=== PATIENT | female | born 1985 | race Caucasian/White ===

== ENCOUNTER 2018-12-03 04:51 | Emergency (ER) | payer OTHER ==
[~2018-12-03] VITALS: Ht 157.5 cm; Wt 63.0 kg
[~2018-12-03 04:51] MED LIST: BIRTH CONTROL; CEPHALEXIN 500500 M1 PO
[2018-12-03] MEDS ORDERED: TYLENOL PM EX-1 EACH PO (05:07)
[2018-12-03 05:22] LABS: URINE CLARITY CLEAR; URINE COLOR ORANGE; URINE SPECIFIC GRAVITY 1.025 (1.005-1.030)
[2018-12-03 05:26] LABS: URINE GLUCOSE-RANDOM ND (Negative); URINE PROTEIN ND (Negative); URINE REDUCING SUBSTANCE NEGATIVE (Negative)
[2018-12-03 05:27] LABS: ICTOTEST (BILI CONFIRMATORY) Negative (Negative); URINE BILIRUBIN ND (Negative); URINE BLOOD ND (Negative); URINE KETONES ND (Negative); URINE NITRITE-REFLEX ND (Negative)
[2018-12-03 05:28] LABS: URINE LEUKOCYTES-REFLEX ND (Negative); URINE UROBILINOGEN ND E.U./dl (0.2-1.0)
[2018-12-03 05:29] LABS: ACETEST (KETONE CONFIRMATORY) Moderate (Negative)
[2018-12-03 05:32] LABS: BACTERIA-REFLEX 1-9 Few /HPF (None Seen); CASTS None Seen /LPF (None Seen); CRYSTALS None Seen /LPF (None Seen); MUCUS 4-6 Moderate strn/LPF (None Seen); SQUAMOUS >10 Many /LPF (0-3); URINE RBC 3-10 Few /HPF (0-2); URINE WBC-REFLEX 6-15 Few /HPF (0-5)
[2018-12-03 06:08] LABS: ABSOLUTE MONOCYTES 0.5 thou/uL (0.0-1.2); ABSOLUTE NEUTROPHILS 7.7 thou/uL (1.6-8.1); BASOPHILS 0.5 %; EOSINOPHILS 0.4 %; HEMATOCRIT 40.4 % (37.0-47.0); HEMOGLOBIN 13.9 gm/dL (12.0-15.0); LYMPHOCYTES 10.6 %; MCH 34.7 pg (26.0-34.0); MCHC 34.5 g/dL (28.0-37.0); MCV 100.8 fL (80.0-100.0); MONOCYTES 5.4 %; MPV 8.1 fl. (7.2-11.1); NUCLEATED RBCS 0 /100WBC; PLATELET COUNT* 209 thou/uL (150-400); POLYS 83.1 %; RDW-CV 12.2 % (10.5-14.5); WBC 9.3 thou/uL (4.0-11.0)
[2018-12-03 06:16] LABS: CREATININE 0.8 mg/dL (0.6-1.3); POTASSIUM 4.3 mmol/L (3.5-5.1)
[2018-12-03 06:20] LABS: ALBUMIN 3.8 g/dL (3.4-5.0); TOTAL BILIRUBIN 0.6 mg/dL (<0.1-1.0)
[2018-12-03] MEDS ORDERED: HYDROCODONE-AP1 EAC6 PO (08:10)
[2018-12-03] MEDS ORDERED: FLAGYL500 M1 PO (08:10)
[2018-12-03] MEDS ORDERED: CIPRO500 MG PO (08:10)
[2018-12-03 08:30] VITALS: BP 108/72
== END 2018-12-03 08:32 | disposition home or self-care (01) ==
LOC: M.ERS 04:51
PROVIDERS: Emergency Medicine
DX: R10.30 Lower abdominal pain, unspecified (principal); R42 Dizziness and giddiness; J45.909 Unspecified asthma, uncomplicated; G43.909 Migraine, unspecified, not intractable, without status migrainosus; Z88.1 Allergy status to other antibiotic agents; Z88.8 Allergy status to other drugs, medicaments and biological substances

== ENCOUNTER 2018-12-06 09:48 | Emergency (ER) | payer OTHER ==
[~2018-12-06] VITALS: Ht 157.5 cm; Wt 63.0 kg
[~2018-12-06 09:48] MED LIST changes: +CIPRO500 MG PO; +FLAGYL500 M1 PO; +HYDROCODONE-AP1 EAC6 PO; +TYLENOL PM EX-1 EACH PO
[2018-12-06] MEDS ORDERED: ATIVAN0.5 MG PO (10:02)
[2018-12-06 11:11] LABS: URINE BILIRUBIN NEGATIVE (Negative); URINE BLOOD 3+ (Negative); URINE CLARITY CLEAR; URINE COLOR YELLOW; URINE GLUCOSE-RANDOM NEGATIVE (Negative); URINE KETONES NEGATIVE (Negative); URINE LEUKOCYTES-REFLEX NEGATIVE (Negative); URINE NITRITE-REFLEX NEGATIVE (Negative); URINE PROTEIN NEGATIVE (Negative); URINE SPECIFIC GRAVITY 1.025 (1.005-1.030); URINE UROBILINOGEN 0.2 E.U./dl (0.2-1.0)
[2018-12-06 11:20] LABS: SQUAMOUS >10 Many /LPF (0-3)
[2018-12-06 11:21] LABS: BACTERIA-REFLEX 1-9 Few /HPF (None Seen); CASTS None Seen /LPF (None Seen); CRYSTALS None Seen /LPF (None Seen); MUCUS None Seen strn/LPF (None Seen); URINE RBC 3-10 Few /HPF (0-2); URINE WBC-REFLEX 0-5 Rare /HPF (0-5)
[2018-12-06 11:30] LABS: HEMATOCRIT 39.6 % (37.0-47.0); HEMOGLOBIN 13.6 gm/dL (12.0-15.0); MCH 34.8 pg (26.0-34.0); MCHC 34.4 g/dL (28.0-37.0); MCV 101.3 fL (80.0-100.0); MPV 8.3 fl. (7.2-11.1); NUCLEATED RBCS 0 /100WBC; PLATELET COUNT* 191 thou/uL (150-400); RBC 3.91 mil/uL (4.20-5.00); RDW-CV 12.2 % (10.5-14.5); WBC 8.5 thou/uL (4.0-11.0)
[2018-12-06 11:45] LABS: CALCIUM 9.1 mg/dL (8.5-10.1); CREATININE 0.7 mg/dL (0.6-1.3); POTASSIUM 3.7 mmol/L (3.5-5.1)
[2018-12-06 11:50] LABS: ALBUMIN 3.6 g/dL (3.4-5.0); TOTAL BILIRUBIN 0.3 mg/dL (<0.1-1.0); TOTAL PROTEIN 6.5 g/dL (6.4-8.2)
[2018-12-06 12:00] LABS: ABSOLUTE LYMPHOCYTES 0.9 thou/uL (0.8-5.3); ABSOLUTE MONOCYTES 0.5 thou/uL (0.0-1.2); ABSOLUTE NEUTROPHILS 7.1 thou/uL (1.6-8.1); ATYPICAL LYMPHS 5 %; PLATELET ESTIMATE ADEQUATE
[2018-12-06 13:15] VITALS: BP 133/85
== END 2018-12-06 13:20 | disposition home or self-care (01) ==
LOC: M.ERS 09:48
PROVIDERS: Personal Emergency Response Attendant
DX: N93.8 Other specified abnormal uterine and vaginal bleeding (principal); J45.909 Unspecified asthma, uncomplicated; G43.909 Migraine, unspecified, not intractable, without status migrainosus; Z88.1 Allergy status to other antibiotic agents; Z88.8 Allergy status to other drugs, medicaments and biological substances

== ENCOUNTER 2020-02-06 21:36 | Emergency (ER) | payer OTHER ==
[~2020-02-06] VITALS: Ht 157.5 cm; Wt 63.0 kg
[~2020-02-06 21:36] MED LIST changes: +ATIVAN0.5 MG PO
[2020-02-06] MEDS ORDERED: PROAIR HFA8.5 GM INH (22:18)
[2020-02-06] MEDS ORDERED: PREDNISONE 20 M20 M1 PO (22:18)
[2020-02-06 23:13] VITALS: BP 123/81
== END 2020-02-06 23:14 | disposition home or self-care (01) ==
LOC: M.ERS 21:36
DX: J45.901 Unspecified asthma with (acute) exacerbation (principal); G43.909 Migraine, unspecified, not intractable, without status migrainosus; Z88.1 Allergy status to other antibiotic agents

== ENCOUNTER 2020-06-25 22:56 | Emergency (ER) | payer OTHER ==
[~2020-06-25] VITALS: Ht 157.5 cm; Wt 68.0 kg
[~2020-06-25 22:56] MED LIST changes: +PREDNISONE 20 M20 M1 PO; +PROAIR HFA8.5 GM INH
[2020-06-25 23:16] LABS: URINE BILIRUBIN NEGATIVE (Negative); URINE BLOOD TRACE (Negative); URINE CLARITY CLEAR; URINE COLOR YELLOW; URINE GLUCOSE-RANDOM NEGATIVE (Negative); URINE KETONES NEGATIVE (Negative); URINE LEUKOCYTES-REFLEX TRACE (Negative); URINE NITRITE-REFLEX NEGATIVE (Negative); URINE PROTEIN NEGATIVE (Negative); URINE SPECIFIC GRAVITY 1.015 (1.005-1.030); URINE UROBILINOGEN 0.2 E.U./dl (0.2-1.0)
[2020-06-25 23:24] LABS: BACTERIA-REFLEX >30 Many /HPF (None Seen); CASTS None Seen /LPF (None Seen); CRYSTALS None Seen /LPF (None Seen); MUCUS 4-6 Moderate strn/LPF (None Seen); SQUAMOUS >10 Many /LPF (0-3); TRANSITIONAL EPITHEL CELL 4-10 Moderate /LPF (None Seen); URINE RBC 3-10 Few /HPF (0-2); URINE WBC-REFLEX 6-15 Few /HPF (0-5)
[2020-06-25 23:32] LABS: ABSOLUTE EOSINOPHILS 0.2 thou/uL (0.0-0.7); ABSOLUTE LYMPHOCYTES 1.9 thou/uL (0.8-5.3); ABSOLUTE MONOCYTES 0.5 thou/uL (0.0-1.2); ABSOLUTE NEUTROPHILS 4.2 thou/uL (1.6-8.1); BASOPHILS 0.6 %; EOSINOPHILS 2.7 %; HEMATOCRIT 38.7 % (37.0-47.0); HEMOGLOBIN 13.7 gm/dL (12.0-15.0); LYMPHOCYTES 27.8 %; MCH 34.3 pg (26.0-34.0); MCHC 35.4 g/dL (28.0-37.0); MONOCYTES 7.2 %; MPV 7.9 fl. (7.2-11.1); NUCLEATED RBCS 0 /100WBC; PLATELET COUNT* 239 thou/uL (150-400); POLYS 61.7 %; RBC 3.99 mil/uL (4.20-5.00); RDW-CV 12.5 % (10.5-14.5); WBC 6.7 thou/uL (4.0-11.0)
[2020-06-25 23:36] LABS: CALCIUM 8.4 mg/dL (8.5-10.1); CREATININE 0.8 mg/dL (0.6-1.3); POTASSIUM 3.7 mmol/L (3.5-5.1)
[2020-06-25] MEDS ORDERED: CIPROFLOXACIN500 M1 PO (23:40)
[2020-06-25 23:41] VITALS: BP 132/70
[2020-06-25 23:41] LABS: ALBUMIN 3.9 g/dL (3.4-5.0); TOTAL BILIRUBIN 0.2 mg/dL (<0.1-1.0); TOTAL PROTEIN 7.4 g/dL (6.4-8.2)
== END 2020-06-25 23:45 | disposition home or self-care (01) ==
LOC: M.ERS 22:56
PROVIDERS: Family Medicine
DX: N39.0 Urinary tract infection, site not specified (principal); J45.909 Unspecified asthma, uncomplicated; G43.909 Migraine, unspecified, not intractable, without status migrainosus; Z88.1 Allergy status to other antibiotic agents